=== PATIENT | female | born 1970 | race Caucasian/White ===

== ENCOUNTER 2016-09-08 14:40 | Emergency (ER) | payer MEDICARE ==
[~2016-09-08] VITALS: Ht 162.6 cm; Wt 56.0 kg
[~2016-09-08 14:40] MED LIST: AZAT50TA9 PO; HYDR200T PO; LIDO5CRE19 TP; LISI-167 PO; LISI-170 PO; NIFE60TA13 PO; PANT40TA5 PO; SPIR25TA PO; TADA20TA33 PO; [UNRECOGNIZED DRUG - CODE] TP
[2016-09-08] MEDS ORDERED: SODIUM CHLORIDE 0.9% 1,000 ML IV ONE (15:50)
[2016-09-08] MEDS ORDERED: ASPIRIN 81 MG TABLET CHEW PO ONE (16:00)
[2016-09-08] MEDS ORDERED: MORPHINE SULFATE 4 MG/ML, 1ML IVPush PRN (16:00)
[2016-09-08] MEDS ORDERED: SODIUM CHLORIDE FLUSH 10ML SYR IVF ONE (16:00)
[2016-09-08] MEDS ORDERED: NITROGLYCERIN OINT 2%, 1GM TP ONE ×2 (16:00→16:23)
[2016-09-08] MEDS ORDERED: ONDANSETRON 2MG/ML, 2ML IVPush ONE (16:00)
[2016-09-08] MEDS ORDERED: MORPHINE SULFATE 4 MG/ML, 1ML ONE (16:23)
[2016-09-08] MEDS ORDERED: ASPIRIN 81 MG TABLET CHEW ONE (16:24)
[2016-09-08 16:31] LABS: ASPARTATE AMINO TRANSFERASE 27 U/L (15-37); BLOOD UREA NITROGEN 10 mg/dL (7-18)
[2016-09-08 16:36] LABS: IS PT STATUS REG ER OR PRE ER? YES
[2016-09-08] MEDS ORDERED: KETOROLAC 30 MG/1 ML IVPush ONE (17:00)
[2016-09-08 19:06] VITALS: BP 187/101
== END 2016-09-08 19:09 | disposition home or self-care (01) ==
LOC: ED 15:16
DX: R07.89 Other chest pain (principal); N30.00 Acute cystitis without hematuria; M06.822 Other specified rheumatoid arthritis, left elbow; M06.821 Other specified rheumatoid arthritis, right elbow; M06.862 Other specified rheumatoid arthritis, left knee; I10 Essential (primary) hypertension; M06.861 Other specified rheumatoid arthritis, right knee
CPT/HCPCS: 36415; 71010; 80053; 82550; 82553; 84484; 85025; 93005; 96361; 96374; 99285; J7030

== ENCOUNTER → 2017-02-20 | Outpatient (CLI) | payer MEDICARE | END | disposition home or self-care (01) | LOC: CARD 12:51 | PROVIDERS: ATTEND Internal Medicine | DX: J84.89 Other specified interstitial pulmonary diseases (principal); K22.8 Other specified diseases of esophagus | CPT/HCPCS: 71250; 94060; 94726; 94729 ==

== ENCOUNTER 2018-06-12 08:51 | Day surgery (SDC) | payer MEDICARE ==
[~2018-06-12] VITALS: Ht 162.6 cm; Wt 62.7 kg
[~2018-06-12 08:51] MED LIST changes: -HYDR200T PO; +HYDR200T72 PO
[2018-06-12] MEDS ORDERED: LOSA25TA2 PO (09:30)
[2018-06-12] MEDS ORDERED: DIPHENHYDRAMINE 50 MG/ML, 1ML IVPush ONE (09:30)
[2018-06-12] MEDS ORDERED: TRAM50TA2 PO (09:30)
[2018-06-12] MEDS ORDERED: OMEP-110 PO (09:30)
[2018-06-12] MEDS ORDERED: ACET-1600 PO (09:31)
[2018-06-12] MEDS ORDERED: DIPHENHYDRAMINE 50 MG/ML, 1ML ONE (09:41)
[2018-06-12 09:46] VITALS: BP 187/103
[2018-06-12 09:54] LABS: BASOPHILS # (AUTO) 0.02 x10^3/uL (0-0.1); BASOPHILS % (AUTO) 0 % (0-1); EOSINOPHILS % (AUTO) 4 % (1-7); LYMPHOCYTES # (AUTO) 1.58 x10^3/uL (1-3.4); LYMPHOCYTES % (AUTO) 33 % (22-44); MD NO; MEAN CORPUSCULAR HEMOGLOBIN 29.9 pg (27.0-34.8); MEAN CORPUSCULAR VOLUME 90.7 fL (80-100); MEAN PLATELET VOLUME 7.4 fL (7.4-10.4); MONOCYTES # (AUTO) 0.53 x10^3/uL (0.2-0.8); MONOCYTES % (AUTO) 11 % (2-9); NEUTROPHILS # (AUTO) 2.42 x10^3/uL (1.8-6.8); NEUTROPHILS % (AUTO) 51 % (42-75); PLATELET COUNT 316 x10^3/uL (130-400); RED BLOOD COUNT 4.61 x10^6/uL (3.82-5.3); RED CELL DISTRIBUTION WIDTH 14.8 % (9.6-15.2)
[2018-06-12 10:06] LABS: ANION GAP 7 mmol/L (5-15); CALCIUM 8.7 mg/dL (8.5-10.1); CHLORIDE 111 mmol/L (98-107); CREATININE 0.63 mg/dL (0.55-1.02)
[2018-06-12] MEDS ORDERED: FENTANYL PF 100 MCG/2ML ONE (10:20)
[2018-06-12] MEDS ORDERED: LIDOCAINE-MPF 1%, 5ML ONE (10:20)
[2018-06-12] MEDS ORDERED: MIDAZOLAM 1 MG/ML, 5ML ONE (10:20)
[2018-06-12] MEDS ORDERED: SODIUM CHLORIDE 0.9% 1,000 ML IV SCH (11:00)
[2018-06-12] MEDS ORDERED: LOSARTAN 50MG TABLET PO ONE (11:30)
== END 2018-06-12 12:50 | disposition home or self-care (01) ==
LOC: CACL 08:51
PROVIDERS: ATTEND Internal Medicine Cardiovascular Disease
DX: I27.20 Pulmonary hypertension, unspecified (principal); M34.9 Systemic sclerosis, unspecified; Z88.8 Allergy status to other drugs, medicaments and biological substances
CPT/HCPCS: 36415; 80048; 85025; 93451; 99156; C1894; J1200; J2250; J3010

== ENCOUNTER → 2018-07-10 | Outpatient (CLI) | payer MEDICARE ==
[~2018-07-10] MED LIST changes: +ACET-1600 PO; +LOSA25TA2 PO; +OMEP-110 PO; +TRAM50TA2 PO
== END | disposition home or self-care (01) ==
LOC: CFH 10:43
PROVIDERS: ATTEND Internal Medicine
DX: J98.4 Other disorders of lung (principal)
CPT/HCPCS: 71250

== ENCOUNTER → 2019-05-07 | Outpatient (CLI) | payer MEDICARE ==
[~2019-05-07] MED LIST changes: -LIDO5CRE19 TP; +LIDO5CRE26 TP
== END | disposition home or self-care (01) ==
LOC: CFH 13:37
PROVIDERS: ATTEND Internal Medicine Cardiovascular Disease
DX: I08.0 Rheumatic disorders of both mitral and aortic valves (principal); I11.9 Hypertensive heart disease without heart failure; R06.00 Dyspnea, unspecified
CPT/HCPCS: 93306